=== PATIENT | male | born 1980 | race Asian ===

== ENCOUNTER 2018-07-14 17:56 | Emergency (ER) | payer BC ==
[~2018-07-14] VITALS: Ht 177.8 cm; Wt 72.6 kg
[2018-07-14 18:06] VITALS: BP_SYST 132
--- NOTE | 2018-07-14 18:11 | NUR ---
Patient to ER bed 8 to gown for evaluation. Side rails up. Report given to Sary VYAS.
--- NOTE | 2018-07-14 18:14 | NUR ---
Patient presented to the ER with severe headache, ambulatory. Patient states headache started friday and has progressively worsened. Patient A&O x4, VS stable, afebrile, respirations equal bilat. Patient C/O headache pain 7/10, nausea, denies vomiting.
--- NOTE | 2018-07-14 18:16 | NUR ---
Dr Hills at bedside examining patient.
[2018-07-14] MEDS ORDERED: KETOROLAC TROMETHAMINE 60 MG/2 ML VIAL IM ONE (18:30)
--- NOTE | 2018-07-14 18:59 | NUR ---
Patient pain reassessed, 08/16 and tolerable for patient.
--- NOTE | 2018-07-14 19:03 | NUR ---
Patient given written and verbal discharge instructions and verbalizes understanding. ER MD Dr. Hills discussed with patient the results and treatment provided. Patient in stable condition. ID arm band removed. No Rx of given. Patient educated on pain management and to follow up with PMD. Pain Scale3/10 and tolerable for patient. Opportunity for questions provided and answered. Medication side effect fact sheet provided.
[2018-07-14 19:09] VITALS: BP_SYST 132
--- NOTE | 2018-07-14 19:28 | NUR ---
Brian johnsoncatherine in [facility] - 07/14/18 at 1929 by SDEDTD Patient unable to urinate at this time
== END 2018-07-14 19:09 | disposition home or self-care (01) ==
LOC: SED 17:56
DX: R51 Headache (principal); E78.00 Pure hypercholesterolemia, unspecified
CPT/HCPCS: 96372; 99283; J1885